=== PATIENT | male | born 1940 ===

== ENCOUNTER 2018-01-04 10:11 | Outpatient (CLI) | payer MEDICARE, OTHER ==
--- NOTE | 2018-01-05 00:16 | XRay Report ---
FINAL REPORT PROCEDURE: XR KNEE 4+V LT TECHNIQUE: LEFT knee radiographs, 4 or more views, including AP, lateral, and oblique views. CPT 54751 HISTORY: STATUS POST TOTAL LEFT KNEE REPLACEMENT COMPARISON: No prior studies are available for comparison. FINDINGS: There has been a total knee replacement. The hardware is intact. There are no fractures or malalignments. There is generalized soft tissue swelling. There is a small joint effusion. IMPRESSION: Knee replacement hardware is intact. There is generalized soft tissue swelling and a small effusion..
== END 2018-01-04 10:12 | disposition home or self-care (01) ==
LOC: SPVIMAG 10:11
PROVIDERS: ATTEND Orthopaedic Surgery Sports Medicine
DX: M25.462 Effusion, left knee (principal); Z96.652 Presence of left artificial knee joint